=== PATIENT | female | born 1990 | race Caucasian/White ===

== ENCOUNTER 2016-11-07 10:52 | Emergency (ER) | payer OTHER ==
[~2016-11-07] VITALS: Ht 154.9 cm; Wt 56.3 kg
[~2016-11-07 10:52] MED LIST: ACETAMINOPHEN500 MG PO; ALBUTEROL2.5 MG/3 M IH; CAMRESE 0.15-01 EACH; CITALOPRAM HBR20 MG PO; CLEOCIN300 MG PO; CLINDAMYCIN HC300 MG PO; CYCLOBENZAPRINE10 MG PO; CYCLOBENZAPRINE5 MG; DILAUDID2 MG PO; FLOVENT 11120 INHALA IH; FLOVENT 22120 INHALA IH; FORTAZ IM; GAVISCON,GEN1 TABLE1 PO; HYDROCODON-ACE1 EAC7 PO; HYDROCODON-ACE1 EACH; HYDROXY-CUT PO; INDOCIN50 MG PO; LIDODERM 5% P1 PATCH; LIDODERM 5% P1 PATCH TD; METHYLPREDNISOLO4 M1; MOTRIN IB200 MG PO; MOTRIN800 MG PO; MULTIPLE VITAM1 EAC4 PO; NAPROSYN500 MG PO; NAPROXEN500 MG PO; NOHOMEMEDS; OXYCODONE-ACET1 EACH; PERCOCET 5/31 TABLET PO; POTASSIUM CHLO20 MEQ PO; PROAIR HFA8.5 GM IH; ROBITUSSIN AC,T10 ML PO; SKELAXIN800 MG PO; TYLENOL EXTRA500 MG PO; ULTRAM50 MG PO; VANCOMYCIN HCL1 GM IV; VIORELE 28 DAY1 EACH PO; ZANTAC150 MG PO; ZITHROMAX250 MG PO; ZOFRAN ODT4 MG PO
[2016-11-07 11:25] LABS: HEMATOCRIT 46.5 % (36.0-46.0); MCH 30.1 PG (29.0-34.0); MCHC 33.5 G/DL (30.0-36.0); MCV 89.6 FL (83-99); MEAN PLAT.VOLUME 9.2 uM^3 (9.5-12.4); PLATELET COUNT 268 K/uL (156-360); RBC DIS.WIDTH-CV 15.3 % (11.8-14.6); RBC DIS.WIDTH-SD 50.9 % (39-53); RED BLOOD COUNT 5.19 M/uL (3.80-5.20); WHITE BLOOD COUNT 11.3 K/uL (4.1-10.2)
[2016-11-07 11:37] LABS: CHLORIDE 108 mEq/L (99-109); POTASSIUM 3.3 mEq/L (3.7-5.4); SODIUM 143 mEq/L (136-147)
[2016-11-07 11:38] LABS: GLUCOSE 73 mg/dL (70-99)
[2016-11-07 11:40] LABS: ANION GAP 10 MEQ/L (2-14)
[2016-11-07 11:42] LABS: GFR ESTIMATE (CALCULATED) > 59 mL/min/
[2016-11-07 11:43] LABS: UREA NITROGEN (BUN) 6 mg/dL (9-23)
[2016-11-07 11:51] LABS: QUANTITATIVE HCG < 4.0 MIU/ML
[2016-11-07 12:59] LABS: ADD MIUA? NO; BILIRUBIN NEGATIVE; BLOOD NEGATIVE; COLOR STRAW ((YELLOW)); GLUCOSE (STRIP) NEGATIVE; KETONES NEGATIVE; LEUKOCYTES NEGATIVE; NITRITE NEGATIVE; PROTEIN (STRIP) NEGATIVE; SPECIFIC GRAVITY 1.008 (1.000-1.030); UCUL ADDED? NO; UROBILINOGEN 0.2 MG/DL (0.2-1.0)
[2016-11-07 14:28] LABS: TOTAL BILIRUBIN < 0.1 mg/dL (0.0-1.0)
[2016-11-07 14:29] LABS: ALKALINE PHOSPHATASE 75 IU/L (3-129)
[2016-11-07 14:32] LABS: LIPASE 37 U/L (1.0-51.0)
[2016-11-07] MEDS ORDERED: MOTRIN600 MG PO (16:35)
[2016-11-07] MEDS ORDERED: ZOFRAN ODT4 MG PO (16:35)
[2016-11-07 16:40] VITALS: BP 129/89
== END 2016-11-07 16:52 | disposition home or self-care (01) ==
LOC: EME 10:52
DX: N83.201 Unspecified ovarian cyst, right side (principal); F32.9 Major depressive disorder, single episode, unspecified; J44.9 Chronic obstructive pulmonary disease, unspecified
CPT/HCPCS: 76856; 80048; 80076; 81003; 83690; 84702; 85027; 99281; 99283

== ENCOUNTER 2016-12-16 22:03 | Emergency (ER) | payer OTHER ==
[~2016-12-16] VITALS: Ht 157.5 cm; Wt 55.0 kg
[~2016-12-16 22:03] MED LIST changes: +MOTRIN600 MG PO
[2016-12-16 22:39] LABS: ADD MIUA? NO; BILIRUBIN NEGATIVE; BLOOD NEGATIVE; COLOR STRAW ((YELLOW)); GLUCOSE (STRIP) NEGATIVE; KETONES NEGATIVE; LEUKOCYTES NEGATIVE; NITRITE NEGATIVE; PROTEIN (STRIP) NEGATIVE; SPECIFIC GRAVITY 1.004 (1.000-1.030); UCUL ADDED? NO; UROBILINOGEN 0.2 MG/DL (0.2-1.0)
[2016-12-16 22:43] LABS: HEMATOCRIT 46.2 % (36.0-46.0); MCHC 34.6 G/DL (30.0-36.0); MCV 89.5 FL (83-99); MEAN PLAT.VOLUME 9.6 uM^3 (9.5-12.4); PLATELET COUNT 277 K/uL (156-360); RBC DIS.WIDTH-CV 13.2 % (11.8-14.6); RBC DIS.WIDTH-SD 43.6 % (39-53); RED BLOOD COUNT 5.16 M/uL (3.80-5.20); WHITE BLOOD COUNT 10.6 K/uL (4.1-10.2)
[2016-12-16 22:52] LABS: CHLORIDE 104 mEq/L (99-109); POTASSIUM 3.2 mEq/L (3.7-5.4); SODIUM 138 mEq/L (136-147)
[2016-12-16 22:54] LABS: GLUCOSE 123 mg/dL (70-99)
[2016-12-16 22:55] LABS: ANION GAP 10 MEQ/L (2-14)
[2016-12-16 22:58] LABS: ALKALINE PHOSPHATASE 69 IU/L (3-129); GFR ESTIMATE (CALCULATED) > 59 mL/min/
[2016-12-16 22:59] LABS: UREA NITROGEN (BUN) 7 mg/dL (9-23)
[2016-12-16 23:07] LABS: QUANTITATIVE HCG 715.4 MIU/ML
[2016-12-17] MEDS ORDERED: PRENATAL TABLE1 EAC3 PO (00:43)
[2016-12-17 01:01] VITALS: BP 141/97
== END 2016-12-17 01:02 | disposition home or self-care (01) ==
LOC: EME 22:03 → RME 22:03
DX: O21.9 Vomiting of pregnancy, unspecified (principal); O99.330 Smoking (tobacco) complicating pregnancy, unspecified trimester; Z3A.00 Weeks of gestation of pregnancy not specified; Z88.0 Allergy status to penicillin; Z88.6 Allergy status to analgesic agent
CPT/HCPCS: 80053; 81003; 84702; 85027; 99281; 99283

== ENCOUNTER 2017-01-26 18:11 | Emergency (ER) | payer OTHER ==
[~2017-01-26] VITALS: Ht 157.5 cm; Wt 56.2 kg
[~2017-01-26 18:11] MED LIST changes: +PRENATAL TABLE1 EAC3 PO
[2017-01-26 20:28] LABS: HEMATOCRIT 38.3 % (36.0-46.0); MCH 31.6 PG (29.0-34.0); MCHC 34.5 G/DL (30.0-36.0); MCV 91.6 FL (83-99); MEAN PLAT.VOLUME 9.3 uM^3 (9.5-12.4); PLATELET COUNT 242 K/uL (156-360); RBC DIS.WIDTH-CV 13.2 % (11.8-14.6); RBC DIS.WIDTH-SD 43.8 % (39-53); RED BLOOD COUNT 4.18 M/uL (3.80-5.20); WHITE BLOOD COUNT 14.4 K/uL (4.1-10.2)
[2017-01-26 20:37] LABS: CHLORIDE 105 mEq/L (99-109); POTASSIUM 3.2 mEq/L (3.7-5.4); SODIUM 139 mEq/L (136-147)
[2017-01-26 20:39] LABS: GLUCOSE 80 mg/dL (70-99)
[2017-01-26 20:40] LABS: ANION GAP 10 MEQ/L (2-14)
[2017-01-26 20:43] LABS: GFR ESTIMATE (CALCULATED) > 59 mL/min/; UREA NITROGEN (BUN) 5 mg/dL (9-23)
[2017-01-26 20:45] LABS: CREATINE KINASE 66 IU/L (1-294)
[2017-01-26] MEDS ORDERED: LIDODERM 5% P1 PATCH TD (22:03)
[2017-01-26 23:37] VITALS: BP 105/80
== END 2017-01-26 23:39 | disposition home or self-care (01) ==
LOC: EME 18:11
PROVIDERS: Physician Assistant
DX: O99.89 Other specified diseases and conditions complicating pregnancy, childbirth and the puerperium (principal); M54.41 Lumbago with sciatica, right side; M54.42 Lumbago with sciatica, left side; O99.511 Diseases of the respiratory system complicating pregnancy, first trimester; J44.9 Chronic obstructive pulmonary disease, unspecified; O99.341 Other mental disorders complicating pregnancy, first trimester; F32.9 Major depressive disorder, single episode, unspecified; Z85.41 Personal history of malignant neoplasm of cervix uteri; Z88.0 Allergy status to penicillin; O99.331 Smoking (tobacco) complicating pregnancy, first trimester; F17.200 Nicotine dependence, unspecified, uncomplicated; Z3A.10 10 weeks gestation of pregnancy
CPT/HCPCS: 80048; 82550; 85027; 85379; 99281; 99284; J3010

== ENCOUNTER 2017-02-23 12:52 | Emergency (ER) | payer OTHER ==
[~2017-02-23] VITALS: Ht 157.5 cm; Wt 59.3 kg
[2017-02-23 14:25] LABS: HEMATOCRIT 35.8 % (36.0-46.0); MCH 32.5 PG (29.0-34.0); MCHC 35.2 G/DL (30.0-36.0); MCV 92.3 FL (83-99); MEAN PLAT.VOLUME 9.4 uM^3 (9.5-12.4); PLATELET COUNT 234 K/uL (156-360); RBC DIS.WIDTH-SD 44.1 % (39-53); RED BLOOD COUNT 3.88 M/uL (3.80-5.20); WHITE BLOOD COUNT 12.6 K/uL (4.1-10.2)
[2017-02-23 14:34] LABS: CHLORIDE 106 mEq/L (99-109); POTASSIUM 3.1 mEq/L (3.7-5.4); SODIUM 137 mEq/L (136-147)
[2017-02-23 14:37] LABS: GLUCOSE 103 mg/dL (70-99)
[2017-02-23 14:38] LABS: ANION GAP 10 MEQ/L (2-14)
[2017-02-23 14:39] LABS: TOTAL BILIRUBIN 0.4 mg/dL (0.0-1.0)
[2017-02-23 14:40] LABS: ALKALINE PHOSPHATASE 55 IU/L (3-129); GFR ESTIMATE (CALCULATED) > 59 mL/min/
[2017-02-23 14:41] LABS: UREA NITROGEN (BUN) 7 mg/dL (9-23)
[2017-02-23 15:10] LABS: QUANTITATIVE HCG 29986.7 MIU/ML
[2017-02-23 16:34] LABS: ADD MIUA? NO; BILIRUBIN NEGATIVE; BLOOD NEGATIVE; COLOR YELLOW ((YELLOW)); GLUCOSE (STRIP) NEGATIVE; KETONES NEGATIVE; LEUKOCYTES NEGATIVE; NITRITE NEGATIVE; PROTEIN (STRIP) 30; SPECIFIC GRAVITY 1.015 (1.000-1.030); UCUL ADDED? NO; UROBILINOGEN 0.2 MG/DL (0.2-1.0)
[2017-02-23 16:46] VITALS: BP 116/74
== END 2017-02-23 16:47 | disposition home or self-care (01) ==
LOC: EME 12:52
DX: O9A.212 Injury, poisoning and certain other consequences of external causes complicating pregnancy, second trimester (principal); S93.401A Sprain of unspecified ligament of right ankle, initial encounter; O26.892 Other specified pregnancy related conditions, second trimester; R10.9 Unspecified abdominal pain; Z3A.14 14 weeks gestation of pregnancy; X50.1XXA Overexertion from prolonged static or awkward postures, initial encounter; Y92.232 Corridor of hospital as the place of occurrence of the external cause; O99.332 Smoking (tobacco) complicating pregnancy, second trimester; F17.200 Nicotine dependence, unspecified, uncomplicated; Z85.41 Personal history of malignant neoplasm of cervix uteri; Z88.0 Allergy status to penicillin; Z88.6 Allergy status to analgesic agent
CPT/HCPCS: 73610; 80053; 81003; 84702; 85027; 99281; 99284

== ENCOUNTER 2017-06-23 17:48 | Outpatient (CLI) | payer OTHER ==
[2017-06-23 18:19] VITALS: BP 127/71
[2017-06-23 18:34] VITALS: BP 129/67
[2017-06-23 18:50] VITALS: BP 129/75
[2017-06-23 19:03] LABS: EOSINOPHIL COUNT 0.2 K/uL (0-0.3); HEMATOCRIT 34.4 % (36.0-46.0); IMMATURE GRANULOCYTE (%) 0.9 % (0.0-0.7); IMMATURE GRANULOCYTE COUNT 0.1 K/uL; INSTRUMENT ABS NEUTROPHIL CT 11.1 K/uL; LYMPHOCYTE COUNT 2.9 K/uL (1.0-2.8); MCHC 34.6 G/DL (30.0-36.0); MCV 92.5 FL (83-99); MEAN PLAT.VOLUME 9.6 uM^3 (9.5-12.4); MONOCYTE (%) 5.3 % (3-12); MONOCYTE COUNT 0.8 K/uL (0-0.8); NEUTROPHIL (%) 73.3 % (45-76); NEUTROPHIL COUNT 11.1 K/uL (1.8-6.4); PLATELET COUNT 272 K/uL (156-360); RBC DIS.WIDTH-CV 12.4 % (11.8-14.6); RBC DIS.WIDTH-SD 42.1 % (39-53); RED BLOOD COUNT 3.72 M/uL (3.80-5.20); WHITE BLOOD COUNT 15.1 K/uL (4.1-10.2)
[2017-06-23 19:04] VITALS: BP 120/64
[2017-06-23 19:19] VITALS: BP 104/59
[2017-06-23 19:23] LABS: ANION GAP 9 MEQ/L (2-14); CHLORIDE 106 MEQ/L (99-109); POTASSIUM 3.2 MEQ/L (3.7-5.4); SAMPLE HEMOLYSIS CHECK 0; SAMPLE ICTERIC CHECK 0; SAMPLE LIPEMIA CHECK 0; SODIUM 138 MEQ/L (136-147); TOTAL BILIRUBIN 0.2 MG/DL (0.0-1.0)
[2017-06-23 19:28] LABS: UR CREATININE CONCENTRATION 94.3 MG/DL
[2017-06-23 19:29] LABS: ALKALINE PHOSPHATASE 111 IU/L (3-129); GFR ESTIMATE (CALCULATED) > 59 mL/min/; GLUCOSE 121 mg/dL (70-99); UREA NITROGEN (BUN) 6 mg/dL (9-23)
[2017-06-23 19:34] VITALS: BP 114/65
== END 2017-06-23 20:27 | disposition home or self-care (01) ==
LOC: LDRP-OP 17:48 → 2WEST 17:49 → LDRP-OP 09-20 12:04
PROVIDERS: Nurse Practitioner
DX: O13.3 Gestational [pregnancy-induced] hypertension without significant proteinuria, third trimester (principal); Z3A.31 31 weeks gestation of pregnancy; O99.333 Smoking (tobacco) complicating pregnancy, third trimester; Z86.19 Personal history of other infectious and parasitic diseases
CPT/HCPCS: 59025; 80053; 82570; 84156; 85025; G0378

== ENCOUNTER 2017-07-26 06:59 | Outpatient (CLI) | payer OTHER ==
[2017-07-26 07:21] VITALS: BP 125/81
[2017-07-26 08:17] LABS: SOURCE SWAB
[2017-07-26 08:27] LABS: APPEARANCE CLEAR ((CLEAR)); BILIRUBIN NEGATIVE; BLOOD NEGATIVE; COLOR STRAW ((YELLOW)); GLUCOSE (STRIP) NEGATIVE; KETONES NEGATIVE; LEUKOCYTES NEGATIVE; NITRITE NEGATIVE; PROTEIN (STRIP) NEGATIVE; SPECIFIC GRAVITY 1.008 (1.000-1.030); UCUL ADDED? NO; UROBILINOGEN 0.2 MG/DL (0.2-1.0)
[2017-07-26 08:41] LABS: AMPHETAMINE NEGATIVE (500 ng/mL); BARBITURATES NEGATIVE (200 ng/mL); BENZODIAZEPINES NEGATIVE (150 ng/mL); BUPRENORPHINE NEGATIVE (10 ng/mL); COCAINE NEGATIVE (150 ng/mL); METHADONE NEGATIVE (200 ng/mL); METHAMPHETAMINE NEGATIVE (500 ng/mL); OPIATES (MORPHINE) NEGATIVE (100 ng/mL); OXYCODONE NEGATIVE (100 ng/mL); PHENCYCLIDINE NEGATIVE (25 ng/mL); PROPOXYPHENE NEGATIVE (300 ng/mL); THC CANNABINOIDS PRESUMPTIVE POSITIVE (50 ng/mL); TRICYCLIC ANTIDEPRESSANTS NEGATIVE (300 ng/mL)
[2017-07-26 08:47] LABS: BASOPHIL (%) 0.3 % (0-1); EOSINOPHIL (%) 1.1 % (0-5); EOSINOPHIL COUNT 0.2 K/uL (0-0.3); HEMOGLOBIN 12.4 G/DL (11.9-15.5); IMMATURE GRANULOCYTE (%) 0.8 % (0.0-0.7); LYMPHOCYTE (%) 16.4 % (15-42); LYMPHOCYTE COUNT 2.3 K/uL (1.0-2.8); MCH 30.5 PG (29.0-34.0); MCHC 33.5 G/DL (30.0-36.0); MCV 90.9 FL (83-99); MONOCYTE COUNT 0.8 K/uL (0-0.8); NEUTROPHIL (%) 75.4 % (45-76); NEUTROPHIL COUNT 10.7 K/uL (1.8-6.4); PLATELET COUNT 295 K/uL (156-360); RBC DIS.WIDTH-CV 13.1 % (11.8-14.6); RBC DIS.WIDTH-SD 43.6 % (39-53); RED BLOOD COUNT 4.07 M/uL (3.80-5.20); WHITE BLOOD COUNT 14.1 K/uL (4.1-10.2)
[2017-07-26 09:15] VITALS: BP 117/58
[2017-07-26 15:52] LABS: CANDIDA DNA PROBE NEGATIVE; GARDNERELLA DNA PROBE NEGATIVE; TRICHOMONAS DNA PROBE NEGATIVE
== END 2017-07-26 10:00 | disposition home or self-care (01) ==
LOC: LDRP-OP 06:59 → 2WEST 07:00 → LDRP-OP 09-20 20:59
PROVIDERS: Midwife; Obstetrics & Gynecology Gynecology
DX: O47.03 False labor before 37 completed weeks of gestation, third trimester (principal); O99.333 Smoking (tobacco) complicating pregnancy, third trimester; F17.210 Nicotine dependence, cigarettes, uncomplicated; O99.323 Drug use complicating pregnancy, third trimester; F11.21 Opioid dependence, in remission; Z86.19 Personal history of other infectious and parasitic diseases; Z3A.36 36 weeks gestation of pregnancy; Z88.0 Allergy status to penicillin
CPT/HCPCS: 59025; 81003; 84999; 85025; 87081; 87480; 87491; 87510; 87591; 87653; 87660; G0378

== ENCOUNTER 2017-07-28 09:16 | Inpatient (IN) | payer OTHER ==
[~2017-07-28] VITALS: Ht 154.9 cm; Wt 70.0 kg
[2017-07-28] VITALS (20 sets, daily range): BP systolic 113–139; BP diastolic 61–84
[2017-07-28 11:48] LABS: BASOPHIL (%) 0.3 % (0-1); BASOPHIL COUNT 0.1 K/uL (0-0.1); EOSINOPHIL (%) 0.6 % (0-5); EOSINOPHIL COUNT 0.1 K/uL (0-0.3); HEMATOCRIT 37.4 % (36.0-46.0); HEMOGLOBIN 12.6 G/DL (11.9-15.5); IMMATURE GRANULOCYTE (%) 0.5 % (0.0-0.7); LYMPHOCYTE (%) 10.8 % (15-42); LYMPHOCYTE COUNT 1.8 K/uL (1.0-2.8); MCH 30.7 PG (29.0-34.0); MCHC 33.7 G/DL (30.0-36.0); MONOCYTE (%) 4.9 % (3-12); MONOCYTE COUNT 0.8 K/uL (0-0.8); NEUTROPHIL (%) 82.9 % (45-76); NEUTROPHIL COUNT 14.2 K/uL (1.8-6.4); PLATELET COUNT 286 K/uL (156-360); RBC DIS.WIDTH-CV 13.1 % (11.8-14.6); RBC DIS.WIDTH-SD 43.1 % (39-53); RED BLOOD COUNT 4.11 M/uL (3.80-5.20); WHITE BLOOD COUNT 17.1 K/uL (4.1-10.2)
[2017-07-28] MEDS ORDERED: IBUPROFEN800 MG PO (14:19)
[2017-07-29 07:03] VITALS: BP 126/76
[2017-07-29 15:54] VITALS: BP 111/72
[2017-07-29 23:00] VITALS: BP 127/70
== END 2017-07-30 13:09 | disposition home or self-care (01) | DRG 775 ==
LOC: LDRP-OP 09:16 → 2WEST 09:17 → LDRP-OP 09-21 12:04
PROVIDERS: Midwife
PROC: 10E0XZZ Delivery of Products of Conception, External Approach (ICD-10-PCS; principal; 2017-07-28)
PROC: 10907ZC Drainage of Amniotic Fluid, Therapeutic from Products of Conception, Via Natural or Artificial Opening (ICD-10-PCS; 2017-07-28)
PROC: 3E0S3BZ Introduction of Anesthetic Agent into Epidural Space, Percutaneous Approach (ICD-10-PCS; 2017-07-28)
DX: O60.14X1 Preterm labor third trimester with preterm delivery third trimester, fetus 1 (principal); O99.334 Smoking (tobacco) complicating childbirth; Z37.0 Single live birth; Z3A.36 36 weeks gestation of pregnancy; F43.10 Post-traumatic stress disorder, unspecified; O99.344 Other mental disorders complicating childbirth; F17.210 Nicotine dependence, cigarettes, uncomplicated; M41.9 Scoliosis, unspecified; Z88.0 Allergy status to penicillin; O77.0 Labor and delivery complicated by meconium in amniotic fluid; F12.10 Cannabis abuse, uncomplicated; O75.89 Other specified complications of labor and delivery
CPT/HCPCS: 59025; 81003; 84999; 85025; 87081; 87480; 87491; 87510; 87591; 87653; 87660; C1755; G0378; J0702; J1050; J3010; J7120